=== PATIENT | female | born 1980 | race Caucasian/White ===

== ENCOUNTER → 2022-03-17 | Outpatient (CLI) | payer BC | LOC: CT 15:28 | DX: R07.9 Chest pain, unspecified (principal); U07.1 COVID-19; R79.89 Other specified abnormal findings of blood chemistry; R06.02 Shortness of breath | CPT/HCPCS: Q9967 ==

== ENCOUNTER → 2022-03-17 | Outpatient (CLI) | payer BC | LOC: LAB 11:13 | DX: U07.1 COVID-19 (principal); R07.9 Chest pain, unspecified; R06.02 Shortness of breath | CPT/HCPCS: 36415; 85379 ==